=== PATIENT | male | born 1970 | race Two or more races ===

== ENCOUNTER 2019-04-15 14:42 | Emergency (ER) | payer BC ==
[~2019-04-15] VITALS: Ht 170.2 cm; Wt 75.7 kg
--- NOTE | 2019-04-15 15:12 | NUR ---
PATIENT BROUGTH BACK FROM TRIAGE WITH CHIEF COMPLAINT OF BODY ACHES STARTING TUESDAY, AND DEVELOPED FEVER TODAY. PATIENT DENIES CP, N/V, SOB.
[2019-04-15] MEDS ORDERED: IBUPROFEN 200 MG TABLET ONE (15:44)
[2019-04-15] MEDS ORDERED: SODIUM CHLORIDE FLUSH 10ML SYR IVF ONE (16:00)
[2019-04-15] MEDS ORDERED: IBUPROFEN 200 MG TABLET PO ONE (16:00)
[2019-04-15 16:08] LABS: RAPID INFLUENZA A Negative (Negative); RAPID INFLUENZA B Negative (Negative)
[2019-04-15 16:10] LABS: BASOPHILS # (AUTO) 0.02 x10^3/uL (0-0.1); BASOPHILS % (AUTO) 0 % (0-1); EOSINOPHILS # (AUTO) 0.06 x10^3/uL (0-0.4); EOSINOPHILS % (AUTO) 1 % (1-7); LYMPHOCYTES % (AUTO) 12 % (22-44); MD NO; MEAN CORPUSCULAR HEMOGLOBIN 30.3 pg (27.5-34.5); MEAN CORPUSCULAR VOLUME 91.8 fL (81-97); MEAN PLATELET VOLUME 8.4 fL (7.4-10.4); MONOCYTES # (AUTO) 0.57 x10^3/uL (0.2-0.8); MONOCYTES % (AUTO) 8 % (2-9); NEUTROPHILS # (AUTO) 5.84 x10^3/uL (1.8-6.8); NEUTROPHILS % (AUTO) 79 % (42-75); PLATELET COUNT 254 x10^3/uL (130-400); RED BLOOD COUNT 5.15 x10^6/uL (4.38-5.82); RED CELL DISTRIBUTION WIDTH 13.7 % (9.4-14.8)
[2019-04-15 16:11] LABS: ALBUMIN 3.7 g/dL (3.4-5.0); ANION GAP 7 mmol/L (5-15); CALCIUM 8.6 mg/dL (8.5-10.1); CHLORIDE 100 mmol/L (98-107)
[2019-04-15 16:14] LABS: ALANINE AMINOTRANSFERASE 91 U/L (12-78); ALKALINE PHOSPHATASE 135 U/L (45-117); BILIRUBIN,TOTAL 0.6 mg/dL (0.2-1.0); CREATININE 1.13 mg/dL (0.7-1.3)
[2019-04-15 16:53] LABS: MICROSCOPIC INDICATED
[2019-04-15 17:33] VITALS: BP 114/72
--- NOTE | 2019-04-15 17:41 | NUR ---
US IN ROOM NOW
[2019-04-15 17:47] LABS: CULTURE INDICATED? NO
== END 2019-04-15 18:37 | disposition home or self-care (01) ==
LOC: ED 17:26
DX: R50.9 Fever, unspecified (principal); M79.10 Myalgia, unspecified site
CPT/HCPCS: 36415; 71045; 76700; 80053; 81001; 83605; 84145; 85025; 87040; 87400; 99284